=== PATIENT | male | born 1975 | race Asian ===

== ENCOUNTER 2017-07-16 11:44 | Day surgery (SDC) | payer OTHER ==
[2017-07-16] MEDS ORDERED: Dexamethasone 10 MG, Ondansetron 2MG/ML MDV 15 MG in Sodium Chloride 0.9% 50 ML IVPB SCH (12:00)
[2017-07-16] MEDS ORDERED: OXALIPLATIN IVPB SCH ×3 (12:00)
[2017-07-16] MEDS ORDERED: DEXTROSE 5% IVPB SCH ×5 (12:00)
[2017-07-16] MEDS ORDERED: Leucovorin Calcium 50 MG in Dextrose 5% in Water 50 ML IVPB SCH ×2 (12:00)
[2017-07-16] MEDS ORDERED: WATER IVPB SCH ×5 (12:00)
[2017-07-16] MEDS ORDERED: FLUOROURACIL IVPB SCH ×2 (12:00)
[2017-07-16 12:02] VITALS: TEMP 97.6
== END 2017-07-16 15:08 | disposition home or self-care (01) ==
LOC: ONC/OP 11:44
PROVIDERS: ATTEND Internal Medicine Medical Oncology
DX: Z51.11 Encounter for antineoplastic chemotherapy (principal); C20 Malignant neoplasm of rectum; F17.200 Nicotine dependence, unspecified, uncomplicated; Z92.3 Personal history of irradiation
CPT/HCPCS: 96367; 96413; 96415; 96417; J0640; J1100; J2405; J7050; J7070; J9190; J9263

== ENCOUNTER 2017-08-06 10:02 | Day surgery (SDC) | payer OTHER ==
[2017-08-06] MEDS ORDERED: Sodium Chloride 0.9% 20 ML ONE (10:11)
[2017-08-06] MEDS ORDERED: [UNRECOGNIZED DRUG - OTHER] IVP SCH (10:15)
[2017-08-06] MEDS ORDERED: ONDANSETRON IVP SCH (10:15)
[2017-08-06] MEDS ORDERED: DEXAMETHASONE IVP SCH (10:15)
[2017-08-06] MEDS ORDERED: ADMIXTURE FEE IVP SCH (10:15)
[2017-08-06] MEDS ORDERED: Leucovorin Calcium 50 MG, Admixture Fee 1 EACH in Dextrose 5% in Water 50 ML IVPB SCH ×3 (10:15)
[2017-08-06 10:30] VITALS: BP 102/62; TEMP 98.1
[2017-08-06] MEDS ORDERED: ADMIXTURE FEE IVPB SCH ×6 (10:30)
[2017-08-06] MEDS ORDERED: OXALIPLATIN IVPB SCH ×3 (10:30)
[2017-08-06] MEDS ORDERED: FLUOROURACIL IVPB SCH ×3 (10:30)
[2017-08-06] MEDS ORDERED: DEXTROSE IVPB SCH ×6 (10:30)
[2017-08-06] MEDS ORDERED: WATER IVPB SCH ×6 (10:30)
== END 2017-08-06 15:41 | disposition home or self-care (01) ==
LOC: ONC/OP 10:02
PROVIDERS: ATTEND Internal Medicine Medical Oncology
DX: Z51.11 Encounter for antineoplastic chemotherapy (principal); C20 Malignant neoplasm of rectum; F17.200 Nicotine dependence, unspecified, uncomplicated; Z98.890 Other specified postprocedural states; Z92.3 Personal history of irradiation
CPT/HCPCS: 96367; 96413; 96415; 96417; A4216; J0640; J1100; J1642; J2405; J7050; J7070; J9190; J9263

== ENCOUNTER 2017-08-20 08:54 | Day surgery (SDC) | payer OTHER ==
[2017-08-20 09:15] VITALS: BP 100/60; TEMP 98.5
[2017-08-20] MEDS ORDERED: WATER IVPB SCH ×3 (09:15)
[2017-08-20] MEDS ORDERED: ONDANSETRON IVP SCH (09:15)
[2017-08-20] MEDS ORDERED: [UNRECOGNIZED DRUG - OTHER] IVP SCH (09:15)
[2017-08-20] MEDS ORDERED: DEXTROSE IVPB SCH ×3 (09:15)
[2017-08-20] MEDS ORDERED: ADMIXTURE FEE IVP SCH (09:15)
[2017-08-20] MEDS ORDERED: Leucovorin Calcium 50 MG, Admixture Fee 1 EACH in Dextrose 5% in Water 50 ML IVPB SCH ×3 (09:15)
[2017-08-20] MEDS ORDERED: DEXAMETHASONE IVP SCH (09:15)
[2017-08-20] MEDS ORDERED: ADMIXTURE FEE IVPB SCH ×3 (09:15)
[2017-08-20] MEDS ORDERED: OXALIPLATIN IVPB SCH ×3 (09:15)
[2017-08-20] MEDS ORDERED: Sodium Chloride 0.9% 20 ML ONE (09:17)
[2017-08-20] MEDS ORDERED: Sodium Chloride 0.9% 250 ML 250 ML IVPB SCH (09:45)
[2017-08-20] MEDS ORDERED: Dextrose 5% in Water 250 ML IVPB SCH (09:45)
[2017-08-20] MEDS: DEXTROSE IVPB SCH ×6 (11:04→13:05)
[2017-08-20] MEDS: WATER IVPB SCH ×6 (11:04→13:05)
[2017-08-20] MEDS: FLUOROURACIL IVPB SCH ×6 (11:04→13:05)
[2017-08-20] MEDS: ADMIXTURE FEE IVPB SCH ×6 (11:04→13:05)
== END 2017-08-20 16:06 | disposition home or self-care (01) ==
LOC: ONC/OP 08:54
PROVIDERS: ATTEND Internal Medicine Medical Oncology
DX: Z51.11 Encounter for antineoplastic chemotherapy (principal); C20 Malignant neoplasm of rectum; F17.200 Nicotine dependence, unspecified, uncomplicated; Z98.890 Other specified postprocedural states; Z92.3 Personal history of irradiation
CPT/HCPCS: 96367; 96413; 96415; 96417; A4216; J0640; J1100; J2405; J7050; J7070; J9190; J9263

== ENCOUNTER 2018-02-04 18:52 | Inpatient (IN) | payer OTHER, SELFPAY ==
[~2018-02-04 18:52] MED LIST: Dexamethasone 20 MG/5 ML VIAL ONE; Glycopyrrolate 0.2 MG/ML 5 ML SYRINGE ONE; Ketorolac Tromethamine 30 MG/ML VIAL ONE; Lidocaine 1% PF 5 ML VIAL ONE; PROPOFOL 200 MG/20 ML VIAL ONE; Succinylcholine Chloride 20 MG/ML 10 ml SYRINGE FS ONE
[2018-02-04] MEDS ORDERED: Ondansetron ODT 4 MG TAB ONE (19:21)
[2018-02-04] MEDS ORDERED: Morphine 4 MG/ML VIAL ONE (19:21)
[2018-02-04 19:32] LABS: Hemoglobin 16.9 g/dL (14.0-18.0); Mean Corpuscular HGB CONC 34.1 g/dL (32.0-36.0); Mean Corpuscular Hemoglobin 31.5 pg (27.0-31.0); Mean Corpuscular Volume 92.2 fl (80.0-94.0); Platelet Count 252 thou/uL (130-400); RBC Distribution Width 12.3 % (11.5-14.5); Red Blood Cell (RBC) Count 5.37 mill/uL (4.70-6.10); White Blood Cell (WBC) Count 16.7 thou/uL (4.8-10.8)
[2018-02-04 19:49] LABS: Band 32 % (5-11); Lymphocytes 1 % (21-51); MDiff Complete? YES; Metamyelocyte 1 % (0-0); Monocytes 2 % (0-10); Neutrophil 64 % (42-75); PLT Morphology Comment Appears Adequate; RBC Morphology Normal
[2018-02-04 19:55] LABS: ALT (SGPT) 30 U/L (8-55); AST (SGOT) 19 U/L (5-34); Albumin 4.6 g/dL (3.5-5.0); Alkaline Phosphatase 113 U/L (40-150); Anion Gap 14 mmol/L (10-20); BUN (Urea Nitrogen) 18 mg/dL (8.9-20.6); Bilirubin, Total 1.8 mg/dL (0.2-1.2); CK (CPK) 30 U/L (30-200); Calc. Creatinine Clearance 0 mL/min (70-130); Calcium 9.6 mg/dL (7.8-10.44); Carbon Dioxide 24 mmol/L (22-29); Chloride 104 mmol/L (98-107); Estimated GFR-MDRD 76; Globulin 2.8 g/dL (2.4-3.5); Glucose 101 mg/dL (70-105); Lipase 6 U/L (8-78); Potassium 4.2 mmol/L (3.5-5.1); Protein, Total 7.4 g/dL (6.0-8.3); Sodium 138 mmol/L (136-145)
[2018-02-04 19:58] LABS: CKMB 0.5 ng/mL (0-6.6); Troponin I Less than 0.010 ng/mL (< 0.028)
[2018-02-04] MEDS ORDERED: metroNIDAZOLE 500 MG/100 ML BAG ONE (20:02)
[2018-02-04] MEDS ORDERED: Meropenem 1 GM in Sterile Water 20 ML SLOW IVP SCH (20:15)
[2018-02-04] MEDS ORDERED: MEROPENEM 1 GM/50 ML 1 GM in Premix Bag 1 BAG IVPB SCH (20:15)
[2018-02-04 20:22] LABS: Prothrombin Time 13.3 SEC (12.0-14.7)
[2018-02-04 20:23] LABS: PTT 29.7 SEC (22.9-36.1)
--- NOTE | 2018-02-04 20:23 | CT ---
ABDOMEN CT WITHOUT CONTRAST: PELVIS CT WITHOUT CONTRAST: HISTORY: Suprapubic pain, starting today. The patient had colonoscopy this morning, with a history of colon c ancer. Blood when wiping after BM. COMPARISON: None. TECHNIQUE: An abdomen and pelvis CT is performed without IV or oral contrast. Coronal reformatted images are dillard bmitted for interpretation. FINDINGS: ABDOMEN: Dependent atelectatic change in the lung bases. Heart size is normal. No pericardial effu chon. Descending thoracic aorta and abdominal aorta have a normal caliber. No periaortic fat strand ing. Symmetric attenuation of the psoas muscles. Limited evaluation of the solid organs by lack of IV contrast. No solid organ abnormality. The gallbladder is unremarkable. Bilaterally, no obstructive uropathy. No mesenteric mass or lymphadenopathy. There is an extensive amount of free air throughout the abdom inal mesentery. A small amount of fluid in both pericolic gutters is suspected. Limited evaluation of the alimentary canal due to lack of oral contrast. Gastric mucosa and duodenum are unremarkable. Multiple normal caliber small bowel loops. There is anastomosis in the right low er quadrant, likely involving segments of distal small bowel. The ileocecal junction is normal. The appendix is difficult to appreciate. There is some fluid and stranding at the cecal apex. The visu alized cecum, ascending colon, transverse colon, and proximal and descending colon are unremarkable. Mucosal thickening of the mid to distal descending colon and sigmoid colon is noted. There is evide nce of diverticula in the sigmoid colon. There is evidence of significant fluid in the pelvis, along with pockets of free air. Possible sigmoid colon injury cannot be excluded. There is an anastomoti c suture chain in the expected region of the rectosigmoid junction. PELVIS: Findings as above. Additionally, the urinary bladder is unremarkable. No lytic or blastic lesions in the ossification structures. IMPRESSION: 1. Extensive pneumoperitoneum. The etiology is uncertain, but it is presumed to be due to injury to the sigmoid colon. 2. Areas of previous anastomosis are identified. No associated high-grade obstruction. The results of the study were discussed with Dr. Talavera on 02/04/2018 at 7:50 p.m. CODE CR POS: [facility]
--- NOTE | 2018-02-04 20:27 | RAD ---
CHEST ONE VIEW: HISTORY: Preoperative exam. Pneumoperitoneum. COMPARISON: 10/02/2016 FINDINGS: Stable right-sided Mediport catheter. Lungs and pleural spaces are clear. No pneumothorax. There is evidence of pneumoperitoneum with air underneath the left and right hemidiaphragm. IMPRESSION: Pneumoperitoneum. POS: [facility]
--- NOTE | 2018-02-04 21:57 | HP ---
DATE OF CONSULTATION: 02/04/2018 CONSULTING PHYSICIAN: Dr. Srikanth Talavera. REASON FOR CONSULTATION: Abdominal pain, perforated bowel. HISTORY OF PRESENT ILLNESS: Patient is a 42-year-old [place] male well known to myself. He was d iagnosed with a rectal cancer in 2015. He underwent neoadjuvant chemotherapy and radiation therapy. In 12/2016, he was taken to the operating room where I performed a laparoscopic ultralow anterior re section of his rectal cancer and creation of temporary loop ileostomy. In 02/2017, I reversed his il eostomy. He has done well since his surgery in February. He is now 11 months out from his surgery. He t ells me that he had been feeling well, eating well, and bowel function was good. Earlier today, he had a [facility]. There were no appare nt significant abnormal findings. Biopsies were obtained at the rectal anastomotic site. The patien t tells me he had pain following the procedure, his pain persisted when he was at home and he was bro ught in by ambulance secondary to the severity of the pain. Here in the emergency room, he underwent evaluation by Dr. Talavera. He was found to have a large amount of free air within the abdomen. He al so has a significant amount of gas in his right colon, transverse colon. The area of perforation is not able to be discerned on a CT scan. Laboratory studies revealed leukocytosis with white blood mario l count of 16.7, hemoglobin is 16.9, platelet count is 252. Chemistry panel is unremarkable, althoug h his bilirubin is elevated at 1.8 of uncertain significance. The patient complains of severe diffus e abdominal pain. PAST MEDICAL HISTORY: Significant for history of rectal cancer. PAST SURGICAL HISTORY: Appendectomy, MediPort placement, laparoscopic low anterior colon resection. CURRENT MEDICATIONS: None. ALLERGIES: None. PERSONAL AND SOCIAL HISTORY: He still smokes, although apparently not very much. 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 PHYSICAL EXAMINATION: VITAL SIGNS: Afebrile, pulse is 102, blood pressure is within normal limits at 110/65. HEENT: Unremarkable. NECK: Supple. LUNGS: Clear to auscultation. CARDIAC: Regular rate and rhythm. ABDOMEN: Diffusely tender with guarding. His abdominal incisions are well healed. EXTREMITIES: Unremarkable. ASSESSMENT AND PLAN: Patient with a perforation following his colonoscopy today. The site of the pe rforation is uncertain. The only area of concern at the time of endoscopy was down near the anastomo sis. If there is a perforation at this location, it may be difficult to visualize or repair because of how low it is within the pelvis. The patient will almost certainly end up with an ostomy, but I a m not certain if this will be an ileostomy or colostomy and will depend upon findings. I have discus sed all this with the patient who understands and agrees to proceed with surgery. He understands pauline t he may end up with an ostomy, although he is expressed his desire to avoid this.
[2018-02-04] MEDS ORDERED: Fentanyl 250 MCG/5 ML VIAL ONE (22:11)
[2018-02-04] MEDS ORDERED: Albumin 5% 500 ML ONE (22:53)
[2018-02-05] MEDS ORDERED: HYDROmorphone 0.5 MG/0.5 ML SYRINGE ONE ×2 (00:14→00:32)
[2018-02-05] MEDS ORDERED: Promethazine HCl 25 MG/ML VIAL IM PRN ×3 (00:45→02:47)
[2018-02-05] MEDS ORDERED: Fentanyl 100 MCG/2 ML VIAL ONE ×2 (00:45→01:15)
[2018-02-05] MEDS ORDERED: Ondansetron HCl/PF 4 MG/2 ML Vial IVP PRN ×3 (00:45→02:47)
[2018-02-05] MEDS ORDERED: Promethazine HCl 25 MG/ML VIAL SLOW IVP PRN (00:45)
[2018-02-05] MEDS ORDERED: diphenhydrAMINE 50 MG/ML VIAL IM PRN (01:02)
[2018-02-05] MEDS ORDERED: Naloxone HCl 0.4 mg/ml Vial IV PRN (01:02)
[2018-02-05] MEDS ORDERED: diphenhydrAMINE 50 MG/ML VIAL IVP PRN (01:02)
[2018-02-05] MEDS ORDERED: diphenhydrAMINE 25 MG CAP PO PRN (01:02)
[2018-02-05] MEDS ORDERED: Fentanyl 5000 MCG/250 ML CADD IVPB PRN (01:02)
[2018-02-05] MEDS ORDERED: Zolpidem Tartrate 5 MG TAB PO PRN (01:02)
[2018-02-05] MEDS ORDERED: Meperidine HCl/PF 25 MG/ML VIAL ONE (01:15)
[2018-02-05] MEDS ORDERED: fentaNYL Citrate/PF 2,000 MCG in Sodium Chloride 0.9% 60 ML IV PRN (01:15)
[2018-02-05] MEDS ORDERED: Communication Order-Pharmacy FS SCH (01:15)
[2018-02-05] MEDS ORDERED: hydrALAZINE 20 MG/ML VIAL SLOW IVP PRN (02:47)
[2018-02-05 04:46] LABS: Hemoglobin 13.8 g/dL (14.0-18.0); Mean Corpuscular HGB CONC 33.6 g/dL (32.0-36.0); Mean Corpuscular Hemoglobin 31.3 pg (27.0-31.0); Mean Corpuscular Volume 93.2 fl (80.0-94.0); Mean Platelet Volume 6.5 fL (7.4-10.4); Platelet Count 226 thou/uL (130-400); RBC Distribution Width 12.1 % (11.5-14.5); Red Blood Cell (RBC) Count 4.39 mill/uL (4.70-6.10)
[2018-02-05 05:13] LABS: Band 52 % (5-11); Lymphocytes 2 % (21-51); MDiff Complete? YES; Neutrophil 46 % (42-75); PLT Morphology Comment Appears Adequate
[2018-02-05 05:18] LABS: Anion Gap 13 mmol/L (10-20); BUN (Urea Nitrogen) 14 mg/dL (8.9-20.6); Calc. Creatinine Clearance 0 mL/min (70-130); Carbon Dioxide 21 mmol/L (22-29); Chloride 108 mmol/L (98-107); Estimated GFR-MDRD Greater than 90; Glucose 142 mg/dL (70-105); Potassium 4.1 mmol/L (3.5-5.1); Sodium 138 mmol/L (136-145)
[2018-02-05] MEDS: metroNIDAZOLE 500 MG in Premix Bag 1 BAG IVPB SCH ×3 (06:29→21:06)
[2018-02-05] MEDS: Ketorolac Tromethamine 30 MG/ML VIAL IVP SCH ×4 (06:29→23:28)
[2018-02-05] MEDS: Acetaminophen 1,000 MG in Premix Bag 1 BAG IVPB SCH ×4 (06:30→23:28)
[2018-02-05] MEDS: D5 1/2 NS w/20 mEq KCL 1,000 ML IV SCH ×3 (06:30→21:33)
[2018-02-05 06:49] VITALS: BMI 21.9
[2018-02-05] MEDS: Famotidine 40 MG/4 ML VIAL SLOW IVP SCH ×2 (09:27→20:44)
[2018-02-05] MEDS: Famotidine 20 MG TAB PO SCH ×2 (09:27→20:44)
[2018-02-05] MEDS ORDERED: Pantoprazole 40 MG VIAL IVP SCH (09:45)
[2018-02-05] MEDS: Enoxaparin Sodium 40 MG/0.4 ML SYRINGE SC SCH (09:45)
--- NOTE | 2018-02-05 11:56 | PRG ---
DATE OF SERVICE: 02/05/2018 SUBJECTIVE: Mr. Pennington is postoperative day #1 following his exploratory laparotomy and drainage of int raabdominal infection from a colon perforation sustained during colonoscopy yesterday morning. His s urgery was completed just after midnight, earlier this morning. He notes that he feels better now th an he did before his surgery. He, of course, has the usual postoperative abdominal pain. He is tole rating ice chips and sips of water and some of his oral medications. He has had no nausea or vomitin g. He still has a Santana catheter in place. He has not yet been ambulating. PHYSICAL EXAMINATION: VITAL SIGNS: Showed that he is afebrile with a temperature of 97.9, pulse is 85, blood pressure is 9 6/66. His urine output was good overnight with 450 mL out. He has a LORRAINE drain and it only drained 10 mL overnight. LABORATORY STUDIES: His CBC shows a hemoglobin of 13.8 with a white blood cell count of 12.0. He vazquez s 52% bands. His basic metabolic panel shows minor electrolyte abnormalities. ASSESSMENT AND PLAN: The patient is stable, postoperative day #1, following repair of colon perforat ion. He has a temporary diverting ileostomy that has yet to begin functioning. I have encouraged juventino umana to ambulate today. He can continue with sips and chips. We will continue IV antibiotics as well. I anticipate he is going to be here in the hospital for another 2-4 days.
[2018-02-06] MEDS: D5 1/2 NS w/20 mEq KCL 1,000 ML IV SCH ×2 (02:28→06:25)
[2018-02-06] MEDS: metroNIDAZOLE 500 MG in Premix Bag 1 BAG IVPB SCH ×3 (05:03→21:27)
[2018-02-06] MEDS: Ketorolac Tromethamine 30 MG/ML VIAL IVP SCH ×4 (05:03→23:58)
[2018-02-06 05:34] LABS: #Lymphocytes 0.7 thou/uL (1.20-3.40); #Monocytes 0.3 thou/uL (0.11-0.59); #Neutrophils 7.1 thou/uL (1.40-6.50); %Basophils 0.2 % (0.0-1.0); %Eosinophils 0.1 % (0.0-10.0); %Lymphocytes 8.9 % (21.0-51.0); %Monocytes 3.1 % (0.0-10.0); %Neutrophils 87.7 % (42.0-75.0); Anion Gap 7 mmol/L (10-20); BUN (Urea Nitrogen) 9 mg/dL (8.9-20.6); Calc. Creatinine Clearance 104 mL/min (70-130); Calcium 7.9 mg/dL (7.8-10.44); Carbon Dioxide 24 mmol/L (22-29); Chloride 109 mmol/L (98-107); Estimated GFR-MDRD Greater than 90; Glucose 123 mg/dL (70-105); Hemoglobin 11.5 g/dL (14.0-18.0); Mean Corpuscular HGB CONC 35.3 g/dL (32.0-36.0); Mean Corpuscular Hemoglobin 32.9 pg (27.0-31.0); Mean Corpuscular Volume 93.1 fl (80.0-94.0); Mean Platelet Volume 6.5 fL (7.4-10.4); Platelet Count 167 thou/uL (130-400); Potassium 3.3 mmol/L (3.5-5.1); RBC Distribution Width 12.1 % (11.5-14.5); Red Blood Cell (RBC) Count 3.51 mill/uL (4.70-6.10); Sodium 137 mmol/L (136-145)
[2018-02-06] MEDS: Famotidine 40 MG/4 ML VIAL SLOW IVP SCH ×2 (08:35→20:27)
[2018-02-06] MEDS: Famotidine 20 MG TAB PO SCH ×2 (08:35→20:24)
[2018-02-06] MEDS: Pantoprazole 40 MG VIAL IVP SCH (08:36)
[2018-02-06] MEDS: Enoxaparin Sodium 40 MG/0.4 ML SYRINGE SC SCH (08:36)
--- NOTE | 2018-02-06 09:12 | PRG ---
DATE OF SERVICE: 02/06/2018 SUBJECTIVE: Mr. Pennington's postoperative day #2 following laparotomy and repair of colon perforation. He has no new or specific complaints. His abdominal discomfort seems to be slowly improving. He is st ill using his FITNESS CONSULTANT. He denies nausea or vomiting. He did ambulate yesterday. His Santana catheter has been removed this morning, but he has not voided yet. He still had no significant ostomy output. OBJECTIVE: VITAL SIGNS: His temperature is within normal limits with a max of 97.9. His pulse is between 84 an d 90, blood pressure remains sort of low, but it is normal for him at 102/64. His urine output yeste rday was 2100 mL. His drain has put out 140 mL and this is serosanguineous fluid. LUNGS: Clear to auscultation. ABDOMEN: Has a dressing intact with a drain exiting the left side and ostomy on the right side. The ostomy is viable, but again there is no output. He does have bowel sounds on examination today. LABORATORY STUDIES: His CBC reveals a hemoglobin of 11.5. White blood cell count is 8.0, down from 12 yesterday. His chemistry profile reveals potassium is little low at 3.3. Electrolytes are otherw ise unremarkable. Microbiology reveals that he has E. coli and couple of other Gram-negative rods wi th anaerobic cultures pending. Sensitivities are pending at this time. ASSESSMENT: Patient is doing well following repair of colon perforation. His postoperative ileus is slowly resolving as expected. I will continue on IV antibiotics and IV pain medication. I will adv ance his diet up to clear liquids and slowly decrease his IV fluid intake.
[2018-02-06] MEDS: D5 1/2 NS w/30 mEq KCL 1,000 ML IV SCH (11:00)
[2018-02-06] MEDS: DEXTROSE IV SCH (11:00)
[2018-02-06] MEDS: NACL IV SCH (11:00)
[2018-02-06] MEDS: POTASSIUM CHLORIDE IV SCH (11:00)
[2018-02-06] MEDS: ADMIXTURE FEE IV SCH (11:00)
[2018-02-07] MEDS: NACL IV SCH
[2018-02-07] MEDS: POTASSIUM CHLORIDE IV SCH
[2018-02-07] MEDS: ADMIXTURE FEE IV SCH
[2018-02-07] MEDS: DEXTROSE IV SCH
[2018-02-07] MEDS: D5 1/2 NS w/30 mEq KCL 1,000 ML IV SCH ×2 (00:01→16:59)
[2018-02-07] MEDS: metroNIDAZOLE 500 MG in Premix Bag 1 BAG IVPB SCH ×3 (05:53→21:12)
[2018-02-07] MEDS: Ketorolac Tromethamine 30 MG/ML VIAL IVP SCH ×4 (05:53→23:37)
[2018-02-07] MEDS: Enoxaparin Sodium 40 MG/0.4 ML SYRINGE SC SCH (09:31)
[2018-02-07] MEDS: Pantoprazole 40 MG VIAL IVP SCH (09:31)
[2018-02-07] MEDS: Famotidine 20 MG TAB PO SCH (09:32)
[2018-02-07] MEDS: Famotidine 40 MG/4 ML VIAL SLOW IVP SCH (09:34)
--- NOTE | 2018-02-07 13:09 | PRG ---
DATE OF SERVICE: 02/07/2018 SUBJECTIVE: Mr. Pennington is postoperative day #3 following laparotomy and repair of a colon perforation. He has no new or specific complaints. He has appropriate abdominal discomfort and seems to be getti ng better. He is tolerating clear liquids without vomiting, although he has experienced some nausea today. PHYSICAL EXAMINATION: VITAL SIGNS: He is afebrile, pulse is 74, blood pressure 119/76. His urine output is good. LUNGS: Clear to auscultation. ABDOMEN: His incision is still covered with dressing. He does have Telfa tiff in place. Ostomy is viable in the right lower quadrant, but there is very little output, no significant gas per ostomy b ag either. Bowel sounds are somewhat diminished today. Drain output is decreasing and becoming ligh ter in color as is appropriate. ASSESSMENT AND PLAN: The patient is stable following his laparotomy and repair of his bowel perforat ion. Await ileus resolution and ileostomy function. I will continue clear liquids for now.
[2018-02-08 05:27] LABS: #Eosinphils 0.1 thou/uL (0.0-0.7); #Lymphocytes 0.6 thou/uL (1.20-3.40); #Monocytes 0.3 thou/uL (0.11-0.59); #Neutrophils 3.9 thou/uL (1.40-6.50); %Basophils 0.3 % (0.0-1.0); %Eosinophils 2.5 % (0.0-10.0); %Lymphocytes 11.9 % (21.0-51.0); %Monocytes 6.7 % (0.0-10.0); %Neutrophils 78.7 % (42.0-75.0); Hemoglobin 12.9 g/dL (14.0-18.0); Mean Corpuscular HGB CONC 33.2 g/dL (32.0-36.0); Mean Corpuscular Hemoglobin 30.4 pg (27.0-31.0); Mean Corpuscular Volume 91.5 fl (80.0-94.0); Mean Platelet Volume 6.1 fL (7.4-10.4); Platelet Count 201 thou/uL (130-400); Red Blood Cell (RBC) Count 4.23 mill/uL (4.70-6.10); White Blood Cell (WBC) Count 4.9 thou/uL (4.8-10.8)
[2018-02-08 05:29] LABS: Anion Gap 12 mmol/L (10-20); BUN (Urea Nitrogen) 13 mg/dL (8.9-20.6); Calc. Creatinine Clearance 114 mL/min (70-130); Calcium 8.5 mg/dL (7.8-10.44); Carbon Dioxide 21 mmol/L (22-29); Chloride 108 mmol/L (98-107); Estimated GFR-MDRD Greater than 90; Glucose 114 mg/dL (70-105); Potassium 3.7 mmol/L (3.5-5.1); Sodium 137 mmol/L (136-145)
[2018-02-08] MEDS: metroNIDAZOLE 500 MG in Premix Bag 1 BAG IVPB SCH (06:17)
[2018-02-08] MEDS: Ketorolac Tromethamine 30 MG/ML VIAL IVP SCH (06:17)
--- NOTE | 2018-02-08 08:40 | PRG ---
DATE OF SERVICE: 02/08/2018 Mr. Pennington is postoperative day #4 following laparotomy and repair of a colon perforation. He has a div erting ileostomy. This began functioning yesterday and he has had a significant volume of stool and enteric contents out from his ileostomy. He is tolerated his liquid diet. He had not been advanced as he had had no bowel function yet. He denies nausea or vomiting. He notes his pain is better. He is ambulating well. PHYSICAL EXAMINATION: VITAL SIGNS: He is afebrile, pulse is 65, blood pressure 100/59. LUNGS: Clear to auscultation. ABDOMEN: Soft with appropriate improving tenderness. He has a dressing in place over his midline in cision and Telfa tiff are still in place in that location as well. Ostomy is well functioning in th e right lower abdomen. Drain site is in the left lower abdomen and the drain output is serosanguineo us, but becoming facility environmental technician. The drain output for yesterday was 145 mL. LABORATORY STUDIES: CBC reveals white blood cell count 4.9 with a hemoglobin of 12.9. His chemistry profile reveals no significant electrolyte abnormalities. ASSESSMENT: The patient is doing well postoperative day #4 following laparotomy for colon perforatio n. Today, I will discontinue his IV fluids. Advance him to a regular diet, switch him to oral medic ations. He will be switched to oral antibiotics as well. Assuming he tolerates his diet and is stab le through today, then I would anticipate discharge home tomorrow. I would recommend drain removal a nd Telfa wick removal prior to discharge. The patient has had an ostomy previously and is therefore familiar with ostomy care. I will see him back a week after his discharge for staple removal from [facility].
[2018-02-08] MEDS: metroNIDAZOLE 500 MG TAB PO SCH ×3 (09:45→20:12)
[2018-02-08] MEDS ORDERED: HYDROcodone/Acetaminophen 7.5/325 mg Tablet PO PRN (10:30)
[2018-02-08] MEDS: Enoxaparin Sodium 40 MG/0.4 ML SYRINGE SC SCH (11:05)
[2018-02-08] MEDS: Ciprofloxacin 500 MG TAB PO SCH (20:12)
[2018-02-09] MEDS: Ciprofloxacin 500 MG TAB PO SCH (05:59)
[2018-02-09] MEDS: Enoxaparin Sodium 40 MG/0.4 ML SYRINGE SC SCH (08:44)
[2018-02-09] MEDS: metroNIDAZOLE 500 MG TAB PO SCH ×2 (08:44→15:10)
[2018-02-09] MEDS: HYDROcodone/Acetaminophen 7.5/325 mg Tablet PO PRN ×2 (11:37→15:10)
[2018-02-09 15:57] VITALS: BP 101/68; TEMP 97.8
[2018-02-09] MEDS ORDERED: Ondansetron ODT 4 MG TAB PO PRN (17:00)
--- NOTE | 2018-02-09 19:39 | OP ---
DATE OF OPERATION: 02/04/2018 PREOPERATIVE DIAGNOSIS: Colon perforation. POSTOPERATIVE DIAGNOSIS: Colon perforation. OPERATIONS PERFORMED: Exploratory laparotomy with drainage of intra-abdominal/pelvic abscess, repair of a colon perforation, coverage with omental flap, creation of a proximal diverting ileostomy. SURGEON: Srikanth Gutiérrez M.D. ANESTHESIA: General endotracheal. DOOR TENDER: Dr. Musa Clarke. INDICATIONS: The patient is a 42-year-old male. He had undergone surgery for rectal cancer 1 year previously. He was undergoing a followup colonoscopy earlier today when an accidental perforati on apparently occurred. CT scan obtained after the patient presented to the emergency room shows a l arge amount of free air, free fluid in the abdomen. He is taken emergently to the operating room for exploration and repair. DESCRIPTION OF OPERATION: Informed consent was obtained. The patient was taken to the operating tiffany m where general endotracheal anesthesia was obtained with the patient in supine position. Abdomen wa s prepped with ChloraPrep and draped in sterile fashion. A midline abdominal incision was created. Dissection was carried through skin and subcutaneous tissue and through the fascia in the midline int o the abdominal cavity. Air was released upon entry into the abdominal cavity. Surprisingly, there was no foul smell. I opened the incision widely. Purulent and bloody abdominal and pelvic contents were aspirated. There was obvious predominance of material down within the pelvis where the majority of the cloudy and infectious material was encountered. I packed off the pelvis and inspected the remainder of the abdominal cavity. Small bowel was run thr oughout. The area of the prior ileostomy closure was identified. The colon was then inspected and f ound to be without definite problem, mass, or perforation. Attention was then turned back to the pelvis. The patient in Trendelenburg, the Bookwalter retractio n device was assembled. This was used to reflect the contents out of the pelvis. The [employer] ret ractor was used to better expose and lift the bladder. I was able to identify the area of the perfor ation in the lowest part of the pelvis. I did not attempt to dissect further, but I believe this was a perforation in the proximal segment of colon just proximal to the anastomosis. The perforation wa s noted to be about 1.5 cm with a somewhat transverse orientation. Mucosa appeared from the de fect. The defect was closed with interrupted sutures of 3-0 Vicryl. This led to satisfactory closure. Aft er it was closed, the abdominal cavity was irrigated with 4 liters of warm saline and all irrigant wa s aspirated. The omentum was mobilized by taking some of it down off the right side of the colon and proximal transverse colon. This afforded enough laxity that I could bring this down into the pelvis . It was secured on either side of the defect with 2 interrupted sutures of 3-0 silk. A #19 round fluted drain was brought out in the left abdomen and positioned down in the pelvis. The prior ileostomy opening in the right lower quadrant was reincised. Dissection was carried throug h scar tissue down to the abdominal cavity. The opening was dilated to two and a half fingerbreadths . I then brought out a segment of ileum that was about 15 cm proximal to the prior ileostomy closure . A #16 red rubber catheter was passed through a mesenteric defect in order to hold this about the a bdominal cavity. The fascia was closed with running suture of loop #1 PDS. The wound was extensively irrigated. Stap les were placed in the skin edges as well as Telfa tiff between the evelyn. Gauze dressing was sandra lied. Attention was turned to the ileostomy then. A transverse incision was created in the ileum and it wa s matured in a double barrel fashion over the red rubber catheter. The red rubber catheter was secur ed with 3-0 nylon suture. The ileostomy was matured with interrupted sutures of 3-0 Vicryl with a co mbination of eversion and full thickness sutures. Ileostomy appliance was applied with Mastisol. Th ere were no complications. The patient tolerated the procedure well and was taken to recovery room i n stable condition.
--- NOTE | 2018-02-11 12:59 | DIS ---
DATE OF ADMISSION: 02/04/2018 DATE OF DISCHARGE: 02/09/2018 ADMISSION DIAGNOSIS: Iatrogenic colon perforation following colonoscopy earlier the same day. DISCHARGE DIAGNOSES: Iatrogenic colon perforation following colonoscopy earlier the same day. OPERATION PERFORMED: Exploratory laparotomy with drainage of pelvic abscess, repair of colotomy, ome ntal patch coverage, creation of proximal diverting ileostomy. ADMISSION HISTORY: The patient is a 42-year-old Malay male. He is known to myself from [facility] urgery about a year ago for rectal cancer. He had done well following that surgery. At that time, linn menard did have a temporary ileostomy which was subsequently closed. He returned to his primary care [facility] for 1-year screening colonoscopy. Colonoscopy was essentially normal; however, there was diff iculty with retroflexion of the scope. The patient has a very short stump of residual rectum followi ng the surgery. He presented to the emergency room because of severe and worsening abdominal pain. X-rays demonstrated a large volume of air and fluid within the abdomen. He was taken urgently to the operating room for exploration and repair. HOSPITAL COURSE: The patient was taken to the operating the evening of the day he presented. Surger y was performed uneventfully with identification of the rectal perforation and closure, diverting the fecal stream through a proximal diverting ileostomy. His wound was closed with loose evelyn and Te lfa gauze wick. He was given have a second right lower quadrant ileostomy. He thereafter had a fairly uneventful hospitalization. He remained afebrile during his hospitalizati on. He was never tachycardic and had remained hemodynamically stable. He tends to run a low blood p ressure, but this was stable for him. A drain was placed at the time of surgery and this drained sandra ropriate bloody and subsequently serosanguineous fluid. This was removed just prior to his discharge . He began having output from his ileostomy on postoperative day #3 and thereafter continued to func tion very nicely. He advanced his diet uneventfully as well. As of postoperative day #5, he was iglesia erating his diet with good ostomy output and was felt to be stable for discharge home. He was given a discharge prescription for hydrocodone as well as Cipro and Flagyl. Telfa tiff were removed prior to discharge and his drain was removed prior to discharge. He will follow up in my office in 10-14 days for staple removal.
== END 2018-02-09 17:17 | disposition home or self-care (01) | DRG 331 ==
LOC: ERS 18:52 → SDC 22:08 → SURG A 02-05 00:50
PROVIDERS: ADMIT Specialist; ATTEND Specialist
PROC: 0W9G0ZZ Drainage of Peritoneal Cavity, Open Approach (ICD-10-PCS; principal; 2018-02-05)
PROC: 0DQE0ZZ Repair Large Intestine, Open Approach (ICD-10-PCS; 2018-02-05)
PROC: 0D1B0Z4 Bypass Ileum to Cutaneous, Open Approach (ICD-10-PCS; 2018-02-05)
DX: K63.1 Perforation of intestine (nontraumatic) (principal); Z85.048 Personal history of other malignant neoplasm of rectum, rectosigmoid junction, and anus; Z92.3 Personal history of irradiation; Z92.21 Personal history of antineoplastic chemotherapy
CPT/HCPCS: 36415; 71045; 74176; 80048; 80053; 82553; 83605; 83690; 84484; 85025; 85610; 85730; 86850; 86900; 86901; 87070; 87077; 87186; 87205; 93005; 96361; 96365; 96368; 96375; A4216; C9113; J0131; J1100; J1170; J1200; J1650; J1885; J1956; J2001; J2175; J2185; J2270; J2550; J2704; J3010; J3480; J7042; J7050; P9045; Q0162

== ENCOUNTER 2018-03-25 08:46 | Outpatient (CLI) | payer OTHER ==
[2018-03-25] MEDS ORDERED: MD-Gastroview 120 ML BOT ONE (11:03)
--- NOTE | 2018-03-25 12:45 | RAD ---
BARIUM ENEMA STANDARD: History: Perforation. Evaluate anastomosis. Comparison: CT abdomen/pelvis 02-04-18. FINDINGS: Patient was brought to the fluoroscopy suite and all questions were answered. Water soluable contrast was instilled retrograde through the rectum. Mild mucosal thickening in the a nastomosis. No leak. IMPRESSION: No evidence of leak. Fluoro time: 1.5 minutes DAP 12.569 mGy*cm^2 POS: [facility]
== END 2018-03-25 08:47 | disposition home or self-care (01) ==
LOC: RAD 08:46
PROVIDERS: ATTEND Specialist
DX: K63.1 Perforation of intestine (nontraumatic) (principal)
CPT/HCPCS: 74280

== ENCOUNTER 2018-04-15 11:00 | Inpatient (IN) | payer OTHER, SELFPAY ==
[2018-04-22 12:03] VITALS: BMI 20.1
[2018-04-23] MEDS ORDERED: Fentanyl 100 MCG/2 ML VIAL ONE ×3 (07:23→09:44)
[2018-04-23] MEDS ORDERED: Midazolam HCl 2 mg/2 ml Vial ONE (07:23)
[2018-04-23] MEDS ORDERED: Dexamethasone 4 mg/ml Vial ONE (07:23)
[2018-04-23] MEDS ORDERED: cefOXitin 2 GM VIAL ONE (07:49)
[2018-04-23] MEDS ORDERED: Sodium Chloride 0.9% 100 ML ONE (07:49)
[2018-04-23] MEDS ORDERED: Ketorolac Tromethamine 30 MG/ML VIAL ONE (07:49)
[2018-04-23] MEDS ORDERED: Lidocaine 2% w/Epinephrine 1:200K 20 ML VIAL ONE (09:39)
[2018-04-23] MEDS ORDERED: Lidocaine 1% w/Epinephrine 1:100K 30 ML VIAL ONE (09:39)
[2018-04-23] MEDS ORDERED: Bupivacaine HCl 0.5%/Epinephrine 1:200,000/PF 30 ml Vial ONE (10:07)
[2018-04-23] MEDS ORDERED: Promethazine HCl 25 MG/ML VIAL ONE (12:03)
[2018-04-23] MEDS ORDERED: Promethazine HCl 25 MG/ML VIAL IM PRN ×2 (12:29→13:22)
[2018-04-23] MEDS ORDERED: Ondansetron HCl/PF 4 MG/2 ML Vial IVP PRN ×2 (12:29→13:22)
[2018-04-23] MEDS ORDERED: Promethazine HCl 25 MG/ML VIAL SLOW IVP PRN (12:29)
[2018-04-23] MEDS ORDERED: D5 1/2 NS w/20 mEq KCL 1,000 ML ONE (12:33)
[2018-04-23] MEDS ORDERED: Lidocaine 1% PF 5 ML VIAL ONE (12:33)
[2018-04-23] MEDS ORDERED: Dexamethasone 20 MG/5 ML VIAL ONE (12:33)
[2018-04-23] MEDS ORDERED: Glycopyrrolate 0.2 MG/ML 5 ML SYRINGE ONE (12:33)
[2018-04-23] MEDS ORDERED: Ondansetron HCl/PF 4 MG/2 ML Vial ONE (12:33)
[2018-04-23] MEDS ORDERED: PROPOFOL 200 MG/20 ML VIAL ONE (12:33)
[2018-04-23] MEDS ORDERED: hydrALAZINE 20 MG/ML VIAL SLOW IVP PRN (13:22)
[2018-04-23] MEDS: D5 1/2 NS w/20 mEq KCL 1,000 ML IV SCH ×2 (13:56→21:27)
[2018-04-23] MEDS: Acetaminophen 1,000 MG in Premix Bag 1 BAG IVPB SCH (17:41)
[2018-04-23] MEDS: Ketorolac Tromethamine 30 MG/ML VIAL IVP SCH (17:44)
[2018-04-23] MEDS: cefOXitin Sodium 1 GM, Admixture Fee 1 EACH in Sodium Chloride 0.9% 100 ML IVPB SCH (17:44)
[2018-04-23] MEDS: Famotidine 20 MG TAB PO SCH (20:20)
[2018-04-23] MEDS: Famotidine/PF 20 mg/2ml Vial SLOW IVP SCH (21:30)
[2018-04-23] MEDS: Enoxaparin Sodium 40 MG/0.4 ML SYRINGE SC SCH (21:30)
[2018-04-24] MEDS: Acetaminophen 1,000 MG in Premix Bag 1 BAG IVPB SCH ×3 (00:27→12:41)
[2018-04-24] MEDS: Ketorolac Tromethamine 30 MG/ML VIAL IVP SCH ×5 (00:27→23:42)
[2018-04-24] MEDS: cefOXitin Sodium 1 GM, Admixture Fee 1 EACH in Sodium Chloride 0.9% 100 ML IVPB SCH (02:59)
[2018-04-24 05:10] LABS: #Lymphocytes 0.6 thou/uL (1.20-3.40); #Monocytes 0.3 thou/uL (0.11-0.59); #Neutrophils 6.9 thou/uL (1.40-6.50); %Lymphocytes 7.4 % (21.0-51.0); %Monocytes 4.3 % (0.0-10.0); %Neutrophils 88.3 % (42.0-75.0); Hemoglobin 14.6 g/dL (14.0-18.0); Mean Corpuscular HGB CONC 34.6 g/dL (32.0-36.0); Mean Corpuscular Hemoglobin 31.2 pg (27.0-31.0); Mean Corpuscular Volume 90.4 fL (78.0-98.0); Mean Platelet Volume 5.8 fL (7.4-10.4); Platelet Count 188 thou/uL (130-400); RBC Distribution Width 12.1 % (11.5-14.5); Red Blood Cell (RBC) Count 4.66 mill/uL (4.70-6.10); White Blood Cell (WBC) Count 7.8 thou/uL (4.8-10.8)
[2018-04-24 05:24] LABS: Anion Gap 9 mmol/L (10-20); BUN (Urea Nitrogen) 12 mg/dL (8.9-20.6); Calc. Creatinine Clearance 82 mL/min (70-130); Calcium 8.5 mg/dL (7.8-10.44); Carbon Dioxide 25 mmol/L (22-29); Chloride 107 mmol/L (98-107); Estimated GFR-MDRD 89; Glucose 143 mg/dL (70-105); Potassium 3.8 mmol/L (3.5-5.1); Sodium 137 mmol/L (136-145)
[2018-04-24] MEDS: D5 1/2 NS w/20 mEq KCL 1,000 ML IV SCH ×3 (06:57→20:42)
[2018-04-24] MEDS ORDERED: HYDROcodone/Acetaminophen 7.5/325 mg Tablet PO PRN ×2 (07:25)
[2018-04-24] MEDS: Famotidine 20 MG TAB PO SCH ×2 (08:34→20:41)
[2018-04-24] MEDS: Famotidine/PF 20 mg/2ml Vial SLOW IVP SCH ×2 (08:34→20:41)
--- NOTE | 2018-04-24 09:03 | PRG ---
DATE OF SERVICE: 04/24/2018 Mr. Pennington is 1 day status post closure of ileostomy. He has no complaints except that he is thirsty. For reasons that are not clear, his clear liquids were not started yesterday. He has had some oozing from his right lower quadrant incision overnight. PHYSICAL EXAMINATION: VITAL SIGNS: He is afebrile. Temperature is 97.5, pulse 55, blood pressure is 96/59. LUNGS: Clear to auscultation. ABDOMEN: Soft with normal bowel sounds. Incision has some mild bloody oozing, but without obvious c ontinued bleeding. There are Telfa tiff intact. LABORATORY STUDIES: His CBC is normal with a hemoglobin 14.6. Basic metabolic panel is normal as we ll. ASSESSMENT: The patient is doing well postoperative day #1 following ileostomy closure. A sand bag will be placed on his wound to control any mild oozing. There is no high flow cutaneous bleeding fro m the wound. I suspect this will stop on its own. Clear liquids will be initiated today. He will b e encouraged to ambulate. I anticipate he will be stable for discharge tomorrow.
[2018-04-24] MEDS: Enoxaparin Sodium 40 MG/0.4 ML SYRINGE SC SCH (20:41)
--- NOTE | 2018-04-25 03:00 | OP ---
DATE OF PROCEDURE: 04/23/2018 PREOPERATIVE DIAGNOSES: Unnecessary/undesired ileostomy, undesired MediPort. POSTOPERATIVE DIAGNOSES: Unnecessary/undesired ileostomy, undesired MediPort. OPERATION PERFORMED: Removal of right subclavian MediPort, ileostomy closure with short segment smal l bowel resection. SURGEON: Srikanth Gutiérrez M.D. ANESTHESIA: General endotracheal. INDICATIONS: Patient is a 42-year-old Burmese male. He originally had rectal cancer surgery. Ab out 2 months ago, he sustained a rectal perforation during his followup colonoscopy 1 year after his surgery. His rectal perforation was repaired and he was given an ileostomy at that time. He returns at this time for ileostomy closure. He also requests MediPort removal as this is no longer being ut ilized. DESCRIPTION OF OPERATION: Informed consent was obtained. General endotracheal anesthesia was obtain ed with the patient in supine position. Right upper chest and right abdomen were prepped with Chlora Prep and draped in sterile fashion. A preoperative tap block had been placed on the right side of hi s abdomen as well. Attention was turned first to the right chest. Local anesthetic was infiltrated using 1% lidocaine w ith epinephrine. Prior incision was opened. The port and catheter were dissected free and removed. The catheter tract was ligated with 3-0 Vicryl. The wound was closed in layers with 3-0 and 4-0 Mon ocryl and Dermabond was placed externally. Attention was turned to the abdomen. Additional 1% lidocaine with epinephrine was infiltrated around the ostomy site. It had been closed prior to prepping the abdomen with a running locking suture of 2-0 silk. An oblique elliptical incision was created along the axis of the ileostomy. Dissection was carried t hrough skin and subcutaneous tissue. Dissection was carried deeply into the abdominal wall and catalina ed out along the ileum down to the level of the fascial defect. Careful dissection was carried into the abdominal cavity. There were minimal adhesions that were easily mobilized. I was able to easily withdraw several centimeters of both limbs of the small bowel through the abdominal wall. A double stapled anastomosis was created between these two limbs of the small bowel using a ARIEL-75 stapler. T he intervening mesentery was taken down between clamps and 2-0 silk ties, and the segment was passed off the field. The mesenteric defect was closed with a couple of interrupted sutures of 3-0 silk and the anastomosis was buttressed with interrupted sutures of 3-0 silk. The bowel was then reduced int ra-abdominally. As this was his second ileostomy at this location, there was substantial scar tissue involving the ab dominal wall musculature and I decided to close this in a single layer rather than in two layers. Th e fascia was therefore closed at this layer using a running suture of #1 PDS. The wound was thorough ly irrigated and all irrigant was aspirated. The fatty tissue was mobilized off the underlying muscu lature to be able to medialize it and approximate the soft tissue to close the space. The Scarp a's fascia was approximated with 3 interrupted sutures of 3-0 Vicryl. Skin edges were approximated w ith interrupted skin evelyn. Telfa tiff were placed between the evelyn and dry gauze dress was pl aced externally. There were no complications. Patient tolerated the procedure well and was taken to recovery room in stable condition.
[2018-04-25] MEDS: Ketorolac Tromethamine 30 MG/ML VIAL IVP SCH ×3 (05:42→17:19)
--- NOTE | 2018-04-25 07:17 | DIS ---
ADMISSION DIAGNOSES: Unnecessary right MediPort, unnecessary ileostomy. DISCHARGE DIAGNOSES: Unnecessary right MediPort, unnecessary ileostomy. OPERATION PERFORMED: Removal of right subclavian MediPort, closure of right lower quadrant ileostomy with short segment small bowel resection. ADMISSION HISTORY: The patient is a 42-year-old Yi male. He has a history of rectal cancer for which he underwent low anterior resection with ileostomy creation. About 2-1/2 months ago he had a colonoscopy at which time he sustained a rectal perforation. At that time, he had a laparotomy [facility] repair of his rectal perforation and was given a temporary diverting ileostomy. He returned to [facility] at this time for closure of this ileostomy. HOSPITAL COURSE: He underwent uneventful surgery on the day of his admission. He tolerated clear li quids on postoperative day #1. Today is postoperative day #2 and he is tolerating his diet uneventfu lly. He has not passed gas or had a bowel movement, but he has no nausea or vomiting or belching. Ashu menard is ambulating well. He has good bowel sounds. Today, he is advanced to full liquid diet. He shou ld be stable for discharge home later today. He is instructed to shower daily and cover the wound wi dry gauze until it stops draining. I will see him back in my office in 10-14 days. He tells me ashu menard already has pain medication at home and therefore does not require [facility].
[2018-04-25 08:10] VITALS: BP 104/67; TEMP 97.7
[2018-04-25] MEDS: D5 1/2 NS w/20 mEq KCL 1,000 ML IV SCH (08:14)
[2018-04-25] MEDS: Famotidine/PF 20 mg/2ml Vial SLOW IVP SCH (08:15)
[2018-04-25] MEDS: Famotidine 20 MG TAB PO SCH (08:15)
== END 2018-04-25 18:29 | disposition home or self-care (01) | DRG 331 ==
LOC: SURG A 04-23 07:04 → SURG B 04-23 12:33
PROVIDERS: ADMIT Specialist; ATTEND Specialist
PROC: 0DBB0ZZ Excision of Ileum, Open Approach (ICD-10-PCS; principal; 2018-04-23)
PROC: 0JPT0WZ Removal of Totally Implantable Vascular Access Device from Trunk Subcutaneous Tissue and Fascia, Open Approach (ICD-10-PCS; 2018-04-23)
DX: Z43.2 Encounter for attention to ileostomy (principal); Z85.048 Personal history of other malignant neoplasm of rectum, rectosigmoid junction, and anus
CPT/HCPCS: 36415; 80048; 85025; J0131; J0670; J0694; J1100; J1650; J1885; J2001; J2250; J2405; J2550; J2704; J3010; J7050; S0028

== ENCOUNTER 2018-04-22 11:31 | Outpatient (CLI) | payer OTHER ==
[2018-04-22 13:40] LABS: #Eosinphils 0.1 thou/uL (0.0-0.7); #Monocytes 0.4 thou/uL (0.11-0.59); #Neutrophils 4.4 thou/uL (1.40-6.50); %Basophils 0.5 % (0.0-1.0); %Lymphocytes 16.5 % (21.0-51.0); %Monocytes 6.1 % (0.0-10.0); %Neutrophils 75.8 % (42.0-75.0); Hemoglobin 16.4 g/dL (14.0-18.0); Mean Corpuscular HGB CONC 33.8 g/dL (32.0-36.0); Mean Corpuscular Volume 91.9 fL (78.0-98.0); Mean Platelet Volume 6.3 fL (7.4-10.4); Platelet Count 236 thou/uL (130-400); RBC Distribution Width 12.5 % (11.5-14.5); Red Blood Cell (RBC) Count 5.28 mill/uL (4.70-6.10); White Blood Cell (WBC) Count 5.8 thou/uL (4.8-10.8)
[2018-04-22 14:02] LABS: Hemoglobin A1c 5.2 % (4.0-6.0)
[2018-04-22 14:05] LABS: Anion Gap 10 mmol/L (10-20); BUN (Urea Nitrogen) 10 mg/dL (8.9-20.6); Calc. Creatinine Clearance 0 mL/min (70-130); Calcium 9.4 mg/dL (7.8-10.44); Carbon Dioxide 26 mmol/L (22-29); Chloride 107 mmol/L (98-107); Estimated GFR-MDRD Greater than 90; Glucose 83 mg/dL (70-105); Sodium 139 mmol/L (136-145)
== END 2018-04-22 11:32 | disposition home or self-care (01) ==
LOC: LABBT 11:31
PROVIDERS: ATTEND Specialist
DX: Z01.812 Encounter for preprocedural laboratory examination (principal); K63.1 Perforation of intestine (nontraumatic); Z85.048 Personal history of other malignant neoplasm of rectum, rectosigmoid junction, and anus
CPT/HCPCS: 80048; 83036; 85025